=== PATIENT | female | born 1975 | race Caucasian/White ===

== ENCOUNTER 2021-06-01 19:14 | Emergency (ER) | payer BC ==
[~2021-06-01] VITALS: Ht 152.4 cm; Wt 68.0 kg
[2021-06-01 19:21] VITALS: BP 128/94
--- NOTE | 2021-06-01 19:28 | NUR ---
TO LOBBY FOLLOWING TRIAGE. URINE CUP GIVEN
[2021-06-01] MEDS ORDERED: KETOROLAC 15 MG/ML VIAL IM ONE (20:35)
--- NOTE | 2021-06-01 21:20 | NUR ---
45 YO/F BIB SELF W C/O PERIUMBILICAL PAIN 6/10 CRAMP LIKE RADIATING TO R SIDE XAPPROX 9 HOURS CONSTANT UNTIL 1800 TODAY THEN INTERMITENT, + NAUSEA. PT DENIES ANY CHEST PAIN, SOB, FEVERS, CHILLS, V/D/C. PT OOK MEDICATION FOR GAS EARLIER W/O RELIEF. PT ALSO HAD AN EPISODE OF R FLANK PAIN AT 0600 PUT RESOLVED AFTER TAKING 600MG IBUPROFEN AT 0600. PT WENT TO URGENT CARE TODAY AND WAS TOLD TO COME TO ER TO R/O APPENDICITIS. PT LAYING IN BED LOCKED IN LOWEST POSITION W X1 SIDERAIL UP. VSS. BREATHING EVEN AND UNLABORED. WILL CONTINUE TO MONITOR. PMH: DENIES ALLERGIES: DENIES
[2021-06-01 21:41] LABS: BASOPHILS # (AUTO) 0.1 K/uL (0.00-0.22); BASOPHILS % (AUTO) 0.4 % (0.0-2.0); EOSINOPHILS % (AUTO) 0.1 % (0.0-4.0); HEMATOCRIT 35.4 % (36-48); LYMPHOCYTES # (AUTO) 0.8 K/uL (2.5-16.5); LYMPHOCYTES % (AUTO) 5.4 % (20.5-51.1); MEAN CORPUSCULAR HEMOGLOBIN 32 pg (27-31); MEAN CORPUSCULAR HGB CONC 34 g/dL (33-37); MEAN CORPUSCULAR VOLUME 93.5 fL (80-94); MONOCYTES # (AUTO) 0.8 K/uL (0.8-1.0); MONOCYTES % (AUTO) 5.3 % (1.7-9.3); NEUTROPHILS # (AUTO) 12.8 K/uL (1.8-7.7); NEUTROPHILS % (AUTO) 88.8 % (42.2-75.2); PLATELET COUNT (AUTO) 306 K/uL (140-450); RED BLOOD CELL COUNT(AUTO) 3.78 MIL/uL (4.20-5.40); RED CELL DISTRIBUTION WIDTH 13.7 % (11.6-13.7); WHITE BLOOD COUNT (AUTO) 14.4 K/uL (4.8-10.8)
[2021-06-01 21:49] LABS: ALBUMIN 3.6 g/dL (3.4-5.0); ANION GAP 10.6 (8-16); CREATININE 0.5 mg/dL (0.6-1.3); POTASSIUM 3.6 mmol/L (3.5-5.1)
--- NOTE | 2021-06-01 22:24 | NUR ---
PT APPEARS TO BE RESTING W EYES CLOSED IN L LATERAL POSITION. BREATHING EVEN AND UNLABORED. VSS.
--- NOTE | 2021-06-01 22:36 | NUR ---
PT REPORTS FEELING BETTER W PAIN IMPROVEMENT.
[2021-06-01 22:39] VITALS: BP 123/81
--- NOTE | 2021-06-01 22:39 | NUR ---
Patient discharged with v/s stable. Written and verbal after care instructions given and explained. Patient verbalized understanding. Ambulatory with steady gait. All questions addressed prior to discharge. Advised to follow up with PMD.
== END 2021-06-01 22:39 | disposition home or self-care (01) ==
LOC: MED 19:14
DX: N92.4 Excessive bleeding in the premenopausal period (principal); R10.31 Right lower quadrant pain
CPT/HCPCS: 36415; 74176; 76856; 80053; 81002; 81025; 82150; 83690; 85025; 96372; 99285; J1885; Q0092